=== PATIENT | female | born 1965 | race Two or more races ===

== ENCOUNTER 2022-12-25 15:58 | Emergency (ER) | payer OTHER ==
[2022-12-25 16:20] VITALS: BMI 27.2
[2022-12-25] MEDS ORDERED: HYDROCORTISONE 1% TOPICAL CREAM 30 GM TUBE TP ONE (16:49)
[2022-12-25 18:01] LABS: BASO % 0.9 % (0-2.0); EOS % 1.7 % (0-4.5); HEMATOCRIT 39.5 % (32.4-45.2); HEMOGLOBIN 13.1 GM/dL (10.7-15.3); LYMPH % 35.1 % (8-40); MCH 29.4 pg (25.7-33.7); MCHC 33.3 g/dl (32.0-36.0); MEAN CELL VOLUME 88.5 fl (80-96); MEAN PLT VOLUME 9.2 fl (7.5-11.1); MONO % 7.9 % (3.8-10.2); NEUT % 54.4 % (42.8-82.8); PLATELET COUNT 273 10^3/uL (134-434); RBC 4.46 M/mm3 (3.60-5.2); RDW 14.4 % (11.6-15.6); WHITE BLOOD COUNT 6.1 K/mm3 (4.0-10.0)
[2022-12-25 18:13] LABS: POTASSIUM 3.5 mmol/L (3.5-5.1)
[2022-12-25 18:15] LABS: CALCIUM 10.1 mg/dL (8.5-10.1)
[2022-12-25 18:16] LABS: ALBUMIN 3.8 g/dl (3.4-5.0); BLOOD UREA NITROGEN 15.6 mg/dL (7-18)
[2022-12-25 18:19] LABS: CREATININE 0.7 mg/dL (0.55-1.3)
[2022-12-25 18:20] LABS: TOT PROT 8.8 g/dl (6.4-8.2)
[2022-12-25 18:21] LABS: BILIRUBIN,TOTAL 0.4 mg/dL (0.2-1)
[2022-12-25 18:25] LABS: N-TERMINAL BNP 18.9 pg/ml (5-125)
[2022-12-25 18:37] VITALS: BP 135/79; PULSE 85; RESP 16; TEMP 98
== END 2022-12-25 19:16 | disposition home or self-care (01) ==
LOC: JERFT 15:58
DX: R22.43 Localized swelling, mass and lump, lower limb, bilateral (principal); L29.9 Pruritus, unspecified
CPT/HCPCS: 36415; 71046-TC-FY; 80053; 83880; 85025; 99284-25

== ENCOUNTER 2024-05-12 18:18 | Emergency (ER) | payer OTHER ==
[2024-05-12] MEDS ORDERED: ACETAMINOPHEN INJECTION 100 ML ONE (19:46)
[2024-05-12] MEDS: ACETAMINOPHEN 1000 MG/100 ML BAG IVPB ONE (20:20)
[2024-05-12 20:22] LABS: VENOUS BASE EXCESS 2.1 mmol/L (-2-2); VENOUS O2 SATURATION 43.7 % (70-80); VENOUS PCO2 38.8 mmHg (38-52); VENOUS PH 7.446 (7.310-7.410)
[2024-05-12 20:26] LABS: BASO % 0.9 % (0-2.0); HEMATOCRIT 40.2 % (32.4-45.2); HEMOGLOBIN 13.9 GM/dL (10.7-15.3); LYMPH % 36.7 % (8-40); MCH 30.7 pg (25.7-33.7); MCHC 34.5 g/dl (32.0-36.0); MEAN CELL VOLUME 88.8 fl (80-96); MEAN PLT VOLUME 8.6 fl (7.5-11.1); MONO % 13.7 % (3.8-10.2); NEUT % 47.7 % (42.8-82.8); PLATELET COUNT 252 10^3/uL (134-434); RBC 4.52 M/mm3 (3.60-5.2); RDW 15.4 % (11.6-15.6)
[2024-05-12] MEDS: SODIUM CHLORIDE 0.9% 500 ML INFUS.BAG IV ONE (20:30)
[2024-05-12 20:32] LABS: INR 1.23 (0.83-1.09); PROTHROMBIN TIME (PATIENT) 13.8 SEC (9.7-13.0)
[2024-05-12 20:34] LABS: ACTIVATED PTT 44.4 SECONDS (25.2-36.5)
[2024-05-12 20:43] LABS: POTASSIUM 3.7 mmol/L (3.5-5.1)
[2024-05-12 20:45] LABS: CALCIUM 10.1 mg/dL (8.5-10.1)
[2024-05-12 20:46] LABS: ALBUMIN 3.3 g/dl (3.4-5.0); BLOOD UREA NITROGEN 5.3 mg/dL (7-18)
[2024-05-12 20:49] LABS: CREATININE 0.8 mg/dL (0.55-1.3)
[2024-05-12 20:50] LABS: BILIRUBIN,TOTAL 0.4 mg/dL (0.2-1); TOT PROT 8.4 g/dl (6.4-8.2)
[2024-05-12 20:58] LABS: LACTIC ACID 3.6 mmol/L (0.4-2.0)
[2024-05-12 21:23] LABS: EPI CELLS 10 /uL (0-25.1); HYALINE CASTS 0 /uL (0-3.1); URINE APPEARANCE CLEAR; URINE BACTERIA 381 /uL (0-1359); URINE BILIRUBIN NEGATIVE (NEGATIVE); URINE COLOR YELLOW; URINE GLUCOSE (UA) 1+ (NEGATIVE); URINE KETONE NEGATIVE (NEGATIVE); URINE LEUK ESTERASE TRACE (NEGATIVE); URINE NITRITE NEGATIVE (NEGATIVE); URINE PROTEIN NEGATIVE (NEGATIVE); URINE RBC 35 /uL (0-23.9); URINE UROBILINOGEN 0.2 mg/dL (0.2-1.0); URINE WBC 10 /uL (0-25.8)
[2024-05-12] MEDS ORDERED: MORPHINE SULFATE 2 MG/ML SYRINGE ONE ×2 (22:13→23:21)
[2024-05-12] MEDS: morphine SULFATE 4 MG/ML VIAL IVPUSH ONE (23:29)
[2024-05-12 23:45] VITALS: BP 128/74; PULSE 70; RESP 16; TEMP 98.7
== END 2024-05-13 02:14 | disposition home or self-care (01) ==
LOC: JER 18:18
PROC: 3E033NZ Introduction of Analgesics, Hypnotics, Sedatives into Peripheral Vein, Percutaneous Approach (ICD-10-PCS; principal; 2024-05-12)
PROC: 3E033NZ Introduction of Analgesics, Hypnotics, Sedatives into Peripheral Vein, Percutaneous Approach (ICD-10-PCS; 2024-05-12)
DX: R10.33 Periumbilical pain (principal); R50.9 Fever, unspecified; R42 Dizziness and giddiness; Z20.822 Contact with and (suspected) exposure to COVID-19
CPT/HCPCS: 0241U-QW; 36415; 71045-TC-FY; 74177-TC; 80053; 81003; 82803; 83605; 83735; 84484; 85025; 85610; 85730; 86850; 86900; 86901; 87040; 87086; 93005; 93010; 96374; 96375; 99285-25; J0131